=== PATIENT | male | born 2000 | race Caucasian/White ===

== ENCOUNTER 2023-08-27 06:19 | Emergency (ER) | payer OTHER, SELFPAY ==
[2023-08-27 06:23] VITALS: BP 155/94; PULSE 70; RESP 16; TEMP 36.5; O2SAT 97; BMI 35.4
--- NOTE | 2023-08-27 06:35 | US_ITS ---
The [address] [address] Patient Name: SUKHWINDER ESPINOZA MRN: [id number] date: 2000 Sex: M Assigned Patient Location: ER Current Patient Location: ER Accession/Order Number: [id number] Exam Date: 08/27/2023 07:10 Report Date: 08/27/2023 07:54 At the request of: PADMINI DORSEY Procedure: US right upper quadrant EXAM: US right upper quadrant HISTORY: right upper quadrant pain COMPARISON: None. TECHNIQUE: Sonographic examination of the right upper quadrant of the abdomen using grayscale, and color Doppler. FINDINGS: Normal contour and echotexture of the liver. No discrete solid hepatic mass. No intrahepatic biliary ductal dilatation. Common bile duct within normal limits. Normal gallbladder wall thickness. Somewhat angular echogenic focus within the gallbladder fundus measuring 1.7 cm. No internal color flow. This does demonstrate some degree of shadowing. Gallbladder sludge is noted. Negative sonographic Dill sign. No pericholecystic fluid. Normal visualized pancreas. Normal echogenicity of the right kidney, which measures 9.8 cm in length. No hydronephrosis. No free fluid. SUMMARY: 1. Relatively large angular echogenic focus within the gallbladder with mild shadowing. While this could represent a gallstone, given angular borders, further evaluation with MRI with contrast may be warranted. 2. Additional gallbladder sludge without evidence for biliary obstruction or acute cholecystitis. Electronically authenticated by: LATANYA GILLIS Date: 08/27/2023 07:54
--- NOTE | 2023-08-27 06:37 | ED.ABDPAIN1 ---
HPI - Abdominal Pain General Chief Complaint: Abdominal Pain Stated Complaint: ABDOMINAL PAIN, FEVER Time Seen by Provider: 08/27/23 06:32 Source: patient Mode of arrival: walk-in History of Present Illness HPI narrative: 23-year-old male presents to the emergency department for right upper quadrant abdominal pain. This time it started at 2 AM and it woke him up. This is his 4th episode since February of this year. He saw his physician in the gallbladder ultrasound was ordered but he never had it done. The pain is moderate and continuous. No trauma or fever. No chest pain cough or shortness of breath. Related Data Home Medications Medication Instructions Recorded Confirmed No Known Home Medications 08/27/23 08/27/23 Allergies Allergy/AdvReac Type Severity Reaction Status Date / Time No Known Drug Allergies Allergy Verified 08/27/23 06:27 Review of Systems ROS Narrative A ten point review of systems is negative except as noted above. PFSH PFSH Social History Smoking status: Former smoker Exam Narrative Exam Narrative: Nurses note and vital signs reviewed and patient is not hypoxic. General: The patient appears well and in no apparent distress. Patient is resting comfortably on cart. Skin: Warm, dry, no pallor noted. There is no rash noted. Head: Normocephalic, atraumatic Eye: Normal conjunctiva, no drainage Ears, Nose, Mouth, and Throat: oral mucosa is moist. Nares patent. Cardiovascular: Regular Rate and Rhythm Respiratory: Patient is in no distress, no accessory muscle use, lungs are clear to auscultation, no wheezing, rales or rhonchi Back: non-tender GI: tenderness present in the epigastric area going into the right upper quadrant. No mass. Musculoskeletal: The patient has no evidence of calf tenderness, no pitting edema, symmetrical pulses noted bilaterally Neurological: A&O, normal speech Psychiatric: Cooperative Constitutional Vital Signs, click to edit/add: Last Vital Signs Temp 97.7 F 08/27/23 06:23 Pulse 70 08/27/23 06:23 Resp 16 08/27/23 06:23 BP 155/94 H 08/27/23 06:23 Pulse Ox 97 08/27/23 06:23 O2 Del Method Room Air 08/27/23 06:23 Course Vital Signs Vital signs: Vital Signs Temperature 97.7 F 08/27/23 06:23 Pulse Rate 70 08/27/23 06:23 Respiratory Rate 16 08/27/23 06:23 Blood Pressure 155/94 H 08/27/23 06:23 Pulse Oximetry 97 08/27/23 06:23 Oxygen Delivery Method Room Air 08/27/23 06:23 Temperature 97.7 F 08/27/23 06:23 Pulse Rate 70 08/27/23 06:23 Respiratory Rate 16 08/27/23 06:23 Blood Pressure 155/94 H 08/27/23 06:23 Pulse Oximetry 97 08/27/23 06:23 Oxygen Delivery Method Room Air 08/27/23 06:23 Discharge Plan Discharge Chief Complaint: Abdominal Pain Clinical Impression: Abdominal pain Patient Disposition: Still a Patient Prescriptions / Home Meds: No Action No Known Home Medications Referrals: Physician,Non-Staff, MD [Primary Care Provider] - 1 week
[2023-08-27] MEDS: MORPHINE SULFATE 4 MG/ML VIAL IV (06:45)
[2023-08-27] MEDS: ONDANSETRON PF 4 MG/2 ML VIAL IV (06:46)
[2023-08-27 06:47] LABS: Basophils Absolute Auto 0.1 10^3/uL (0.0-0.1); Basophils Percent Auto 0.6 % (0.2-2.0); Eosinophils Absolute Auto 0.2 10^3/uL (0.0-0.7); Eosinophils Percent Auto 1.7 % (0.9-7.0); Hematocrit 46.4 % (42.0-54.0); Hemoglobin 15.8 g/dL (14.0-18.0); Immature Granulocytes Abs Auto 0.02 10^3/uL (0.00-0.03); Immature Granulocytes Pct Auto 0.2 % (0.0-0.5); Lymphocytes Absolute Auto 1.9 10^3/uL (1.2-3.8); Mean Corpuscular HGB Conc 34.1 g/dL (29.9-35.2); Mean Corpuscular Hemoglobin 29.9 pg (25.9-34.0); Mean Corpuscular Volume 87.7 fL (80.0-94.0); Mean Platelet Volume 10.3 fL (9.5-13.5); Monocytes Absolute Auto 0.4 10^3/uL (0.3-0.8); Monocytes Percent Auto 3.3 % (1.7-12.0); Neutrophils Absolute Auto 8.4 10^3/uL (1.4-6.5); Neutrophils Percent Auto 77.2 % (43.0-75.0); Platelet Count 260 10^3/uL (150-450); Red Blood Count 5.29 10^6/uL (4.70-6.10); Red Cell Distribution Width 11.9 % (11.0-15.0); White Blood Count 10.9 10^3/uL (4.0-11.0)
[2023-08-27 06:55] LABS: Anion Gap 13.5; BUN Creatinine Ratio 16.8; Calcium 9.1 mg/dL (8.5-10.1); Carbon Dioxide 27.5 mmol/L (21.0-32.0); Chloride 102 mmol/L (98-107); Estimated GFR (African America >60 (>=60); Estimated GFR (Non-African Ame >60 (>=60); Glucose 121 mg/dL (74-106); Sodium 139 mmol/L (136-145)
[2023-08-27 07:00] VITALS: BP 155/92; PULSE 73; RESP 18; O2SAT 94
[2023-08-27 07:01] LABS: Alanine Aminotransferase 68 U/L (16-63); Albumin Globulin Ratio 1.3; Albumin Level 4.1 g/dL (3.4-5.0); Alkaline Phosphatase 108 U/L (46-116); Amylase 48 U/L (25-115); Aspartate Amino Transferase 15 U/L (15-37); Bilirubin Direct 0.1 mg/dL (0.0-0.2); Bilirubin Total 0.4 mg/dL (0.2-1.0); Globulin 3.2 g/dL; Total Protein 7.3 g/dL (6.4-8.2)
[2023-08-27 07:38] VITALS: BP 146/75; PULSE 65; RESP 16; O2SAT 95
[2023-08-27 08:14] VITALS: BP 139/71; PULSE 74; RESP 18; O2SAT 97
== END 2023-08-27 08:18 | disposition home or self-care (01) ==
PROVIDERS: Emergency Provider Emergency Medicine
DX: K29.70 Gastritis, unspecified, without bleeding (principal); K80.50 Calculus of bile duct without cholangitis or cholecystitis without obstruction; Z87.891 Personal history of nicotine dependence
CPT/HCPCS: 36415; 76705; 80048; 80076; 82150; 83690; 85025; 96374; 96375; 99284

== ENCOUNTER 2023-08-31 12:24 | Outpatient (OUT) | payer OTHER, SELFPAY | END 2023-08-31 12:25 | disposition home or self-care (01) | LOC: PST 12:24 | PROVIDERS: Visit Provider Surgery | DX: Z01.818 Encounter for other preprocedural examination (principal); K80.20 Calculus of gallbladder without cholecystitis without obstruction ==

== ENCOUNTER 2023-09-07 07:43 | Day surgery (SDC) | payer OTHER, SELFPAY ==
[2023-08-31 12:50] VITALS: BP 132/82; PULSE 99; RESP 18; TEMP 36.4; O2SAT 96; BMI 34.8
[2023-09-07] VITALS (13 sets, daily range): BP systolic 114–148; BP diastolic 58–91; PULSE 95–136; RESP 13–26; TEMP 36.2–36.4; O2SAT 85–98; BMI 35.8
--- NOTE | 2023-09-07 08:05 | PC.NURSE ---
1 UNSUCCESSFUL ATTEMPT BY MATTEO JOHNSON RN
[2023-09-07] MEDS: LACTATED RINGER'S SOLUTION 1,000 ML 50 ML IV ×2 (08:08→11:31)
[2023-09-07] MEDS: INDOCYANINE GREEN 25 MG VIAL INJ (08:17)
[2023-09-07] MEDS: CEFAZOLIN SODIUM/DEXTROSE,ISO 2 GM/50 ML PIGGYBACK IV (08:47)
--- NOTE | 2023-09-07 09:08 | PM.GSPRC ---
Date of procedure: 09/07/23 Indications for Procedure: chronic cholecystitis with cholelithiasis Pre-op diagnosis: chronic cholecystitis with cholelithiasis Post-op diagnosis: same as pre-op Procedure: robotic cholecystectomy with IC Green Findings: acute and chronic cholecystitis with cholelithiasis Anesthesia: SCARLETT Surgeon: Kevin Diaz Procedure Summary: After again explaining the risks and benefits of the procedure in the preoperative care unit consent was obtained. ?The patient was taken back to the operative room and placed on the operative room table. General endotracheal anesthesia was induced and preoperative antibiotics were given. ?Appropriate time-out was performed. ?Right arm was?tucked at the side. ?Then the bed was positioned appropriately. ?The abdomen was prepped and draped in normal sterile fashion. A periumbilical incision was made. ?Dissection was carried down to the fascia. ?Fascia was elevated with jeanne clamps and entered sharply. A 12 mm port was placed into the abdomen and the abdomen was insufflated, there were no complications with insufflation. ?The scope and camera was brought in and then 3 more ports were placed. An 8?mm port was placed in the right lateral position. Two additional?8 mm Davinci ports were placed, 8 cm to the left and one to the right of the umbilicus. ?The patient was then placed in reverse Trendelenburg position and slightly turned to the left. The [email or web address] robot was docked. The 4th arm was used to grasp the dome of the gallbladder superiorly. ?The peritoneal attachments were taken down with meticulous dissection laterally and medially from the gallbladder. ?At this point the infundibular gallbladder was retracted laterally and a critical view was obtained. ?IC green was used to identify the common bile duct but the cystic duct did not light up.With the cystic duct inferiorly cystic artery medially and the liver posteriorly. ?Two clips were placed on the patient side and 1 on the specimen side of both the cystic duct and the cystic artery. ?These were then excised. ?The remainder of the gallbladder was taken off of the gallbladder fossa using electrocautery. The gallbladder was then removed through the umbilical port using Endo-Catch bag. ?The gallbladder fossa was visualized again to confirm no bleeding and no leak from the cystic duct. The robot was undocked from the patient. The abdomen was deinsufflated.? The umbilical incision fascia was closed with a [id number] 0 Vicryl. The skin was closed at all the incisions with 4 0 Monocryl. All incisions and underlying muscle was anesthetized with local anesthetic.?Steri-Strips were placed. The patient was extubated and had no immediate postoperative complications. Patient was taken to the PACU in stable conditionas well as sterile dressings. Special Crimes Investigator: Mouna MALIK Estimated blood loss (mL): 3 Specimens: gallbladder and stones Complications: No Condition: stable Disposition: PACU
[2023-09-07] MEDS: BUPIVACAINE HCL 0.5% PF 50 MG/10 ML VIAL 20 ML INJ (11:29)
[2023-09-07] MEDS: OXYCODONE HCL/ACETAMINOPHEN 5MG/325MG 1 TAB PO (12:26)
[2023-09-07] MEDS: HYDROMORPHONE HCL 0.5 MG/0.5 ML SYRINGE IV (12:26)
== END 2023-09-07 13:50 | disposition home or self-care (01) ==
PROVIDERS: Visit Provider Surgery
PROC: (CPT 47563; principal; 2023-09-07 09:00)
DX: K80.10 Calculus of gallbladder with chronic cholecystitis without obstruction (principal); E66.9 Obesity, unspecified; Z86.16 Personal history of COVID-19; F17.290 Nicotine dependence, other tobacco product, uncomplicated; Z68.35 Body mass index [BMI] 35.0-35.9, adult; K21.9 Gastro-esophageal reflux disease without esophagitis
CPT/HCPCS: 47563; 88304; J1170; J2704